=== PATIENT | female | born 1990 | race Caucasian/White ===

== ENCOUNTER 2016-08-15 16:20 | Emergency (ER) | payer OTHER ==
[~2016-08-15] VITALS: Ht 162.6 cm; Wt 51.6 kg
[~2016-08-15 16:20] MED LIST: BACIOIN2; CHOL1000 PO; PRED-301 PO; RBTDAC5; THIA50TA3 PO
[2016-08-15 16:23] VITALS: TEMP 36.5; Ht 162.6 cm; Wt 51.6 kg
[2016-08-15] MEDS ORDERED: DOXYCYCLINE HYCLATE 100 MG CAP PO ONE (17:00)
--- NOTE | 2016-08-15 17:09 | EMERGENCY ROOM VISIT NOTE ---
History Report prepared by Haley: Yifan Gaffney Under the Supervision of: Dr. Fredi Drew M.D. First contact with patient: 16:47 Chief Complaint: MENTAL HEALTH EVALUATION Stated Complaint: 302 History of Present Illness The patient is a 26 year old female who presents to the Emergency Room for a mental health evaluation starting prior to arrival. Per the nursing staff, the patient was found on a jungle gym rolling in the mud, and she was 302'ed. The patient states that she thinks that she was shocked by an ungrounded wire. The patient denies any drugs, and she states that she should be taking Zoloft for depression. The patient is additionally complaining of a tick in her arm, and cuts on her feet and hands. Source of History: patient, nursing staff Onset: prior to arrival Position: other (gloobal) Quality: other (mental health evaluation) Note: Associated symptoms: tick on her arm and cuts on her hands and feet. Review of Systems See HPI for pertinent positives & negatives. A total of 10 systems reviewed and were otherwise negative. Past Medical & Surgical Medical Problems: (1) Altered mental status (2) Anxiety (3) Drug overdose, multiple drugs (4) Drug withdrawal (5) Intentional overdose of drug in tablet form (6) Kidney stones (7) Opioid abuse (8) UTI (urinary tract infection) Family History Patient reports no known family medical history. Social History Smoking Status: Current Every Day Smoker Alcohol Use: occasionally Marital Status: single, in relationship Housing Status: lives with significant other Occupation Status: unemployed Current/Historical Medications No Active Prescriptions or Reported Meds Allergies Coded Allergies: No Known Allergies (Unverified , 08/15/16) Physical Exam Vital Signs Date Time Temp Pulse Resp B/P Pulse Ox O2 Delivery O2 Flow Rate FiO2 08/15/16 22:25 83 18 136/76 99 Room Air 08/15/16 18:27 86 16 114/75 100 Room Air 08/15/16 16:23 36.5 107 20 156/112 98 Room Air Physical Exam GENERAL: Patient is manic with rapid thought and speech. Disheveled and covered in dirt and grime. HEENT: No acute trauma, normocephalic atraumatic, mucous membranes moist, no nasal congestion, no scleral icterus. NECK: No stridor, no adenopathy, no meningismus, trachea is midline. LUNGS: No dyspnea. Clear to auscultation and equal bilaterally. No wheeze, no rhonchi. HEART: Regular rate and rhythm. No murmurs, rubs, gallops appreciated. ABDOMEN: Soft, nontender, bowel sounds positive, no masses appreciated, no peritonitis. BACK: No midline tenderness, no CVA tenderness EXTREMITIES: Multiple bruises of the lower extremities and cuts on hands and knees. Normal motion all extremities, no cyanosis, no edema. NEUROLOGIC: Alert and oriented, no acute motor or sensory deficits, no focal weakness, cranial nerves grossly intact. SKIN: Small tick with slight surrounding erythema of the right forearm. No rash , no jaundice, no diaphoresis. PSYCH: Manic. Denies suicidal of homicidal ideations. Denies depression. Deflects questions about drug use. Medical Decision & Procedures Laboratory Results 08/15/16 17:30 Red Blood Count 4.64, Mean Corpuscular Volume 87.1, Mean Corpuscular Hemoglobin 30.4, Mean Corpuscular Hemoglobin Concent 34.9, Mean Platelet Volume 9.0, Neutrophils (%) (Auto) 64.5, Lymphocytes (%) (Auto) 27.9, Monocytes (%) (Auto) 6.7, Eosinophils (%) (Auto) 0.3, Basophils (%) (Auto) 0.3, Neutrophils # (Auto) 7.69, Lymphocytes # (Auto) 3.33, Monocytes # (Auto) 0.80, Eosinophils # (Auto) 0.04, Basophils # (Auto) 0.04 08/15/16 17:30 Test 08/15/16 16:40 08/15/16 17:30 08/15/16 18:55 Urine RBC 0-4 /hpf (0-4) Urine WBC 5-10 /hpf (0-5) Urine Epithelial Cells >30 /lpf (0-5) Urine Renal Epithelial Cells /lpf (0-5) Urine Calcium Oxalate Crystals PRESENT (NONE PRSENT) Urine Bacteria 2+ (NEG) Urine Hyaline Casts 1-5 /lpf (0-5) Urine Pathogenic Casts /lpf (0) Urine Test NEG (NEG) Urine Opiates Screen NEG (NEG) Urine Methadone, Qualitative NEG (NEG) Urine Barbiturates NEG (NEG) Urine Phencyclidine (PCP) Level NEG (NEG) Ur Amphetamine/Methamphetamine POS (NEG) MDMA (Ecstasy) Screen POS (NEG) Urine Benzodiazepines Screen NEG (NEG) Urine Cocaine Metabolite NEG (NEG) Urine Marijuana (THC) POS (NEG) White Blood Count 11.93 K/uL (4.8-10.8) Red Blood Count 4.64 M/uL (4.2-5.4) Hemoglobin 14.1 g/dL (12.0-16.0) Hematocrit 40.4 % (37-47) Mean Corpuscular Volume 87.1 fL (80-100) Mean Corpuscular Hemoglobin 30.4 pg (25-34) Mean Corpuscular Hemoglobin Concent 34.9 g/dl (32-36) Platelet Count 566 K/uL (130-400) Mean Platelet Volume 9.0 fL (7.4-10.4) Neutrophils (%) (Auto) 64.5 % Lymphocytes (%) (Auto) 27.9 % Monocytes (%) (Auto) 6.7 % Eosinophils (%) (Auto) 0.3 % Basophils (%) (Auto) 0.3 % Neutrophils # (Auto) 7.69 K/uL (1.4-6.5) Lymphocytes # (Auto) 3.33 K/uL (1.2-3.4) Monocytes # (Auto) 0.80 K/uL (0.11-0.59) Eosinophils # (Auto) 0.04 K/uL (0-0.5) Basophils # (Auto) 0.04 K/uL (0-0.2) RDW Standard Deviation 40.4 fL (36.4-46.3) RDW Coefficient of Variation 12.6 % (11.5-14.5) Immature Granulocyte % (Auto) 0.3 % Immature Granulocyte # (Auto) 0.03 K/uL (0.00-0.02) Anion Gap 11.0 mmol/L (3-11) Est Creatinine Clear Calc Drug Dose 73.2 ml/min Estimated GFR () 96.4 Estimated GFR (Non- 83.1 BUN/Creatinine Ratio 13.5 (10-20) Calcium Level 9.7 mg/dl (8.5-10.1) Total Bilirubin 1.3 mg/dl (0.2-1) Aspartate Amino Transf (AST/SGOT) 18 U/L (15-37) Alanine Aminotransferase (ALT/SGPT) 40 U/L (12-78) Alkaline Phosphatase 78 U/L (45-117) Total Creatine Kinase 180 U/L (26-192) Total Protein 8.7 gm/dl (6.4-8.2) Albumin 4.8 gm/dl (3.4-5.0) Globulin 3.9 gm/dl (2.5-4.0) Albumin/Globulin Ratio 1.2 (0.9-2) Thyroid Stimulating Hormone (TSH) 1.350 uIu/ml (0.300-4.500) Salicylates Level 2.4 mg/dl (2.8-20) Acetaminophen Level < 2 ug/ml (10-30) Ethyl Alcohol mg/dL < 3.0 mg/dl (0-3) Urine Color DK YELLOW Urine Appearance CLOUDY (CLEAR) Urine pH 6.5 (4.5-7.5) Urine Specific [place] 1.026 (1.000-1.030) Urine Protein TRACE (NEG) Urine Glucose (UA) NEG (NEG) Urine Ketones TRACE (NEG) Urine Occult Blood NEG (NEG) Urine Nitrite NEG (NEG) Urine Bilirubin NEG (NEG) Urine Urobilinogen POS (NEG) Urine Leukocyte Esterase TRACE (NEG) Urine WBC (Auto) 1-5 /hpf (0-5) Urine RBC (Auto) 0-4 /hpf (0-4) Urine Hyaline Casts (Auto) 5-10 /lpf (0-5) Urine Epithelial Cells (Auto) >30 /lpf (0-5) Urine Bacteria (Auto) NEG (NEG) Urine Crystals CALCIUM OXALATE (NONE Laboratory results as reviewed by me. Medications Administered Medications (Trade) Dose Ordered Sig/Leelee Route Start Time Stop Time Status Last Admin Dose Admin Doxycycline Hyclate (Vibramycin Cap) 200 mg ONE ONCE PO 08/15/16 17:00 08/15/16 17:01 DC 08/15/16 17:24 200 MG Potassium Chloride (Ilda Ciel Elix) 40 meq NOW STAT PO 08/15/16 18:13 08/15/16 18:15 DC 08/15/16 18:24 40 MEQ Lorazepam (Ativan Inj) 2 mg NOW STAT IM 08/15/16 20:02 08/15/16 20:03 DC 08/15/16 20:26 2 MG Haloperidol Lactate (Haldol Inj) 2.5 mg NOW STAT IM 08/15/16 20:02 08/15/16 20:03 DC 08/15/16 20:26 2.5 MG Procedure Procedure: Tick removal Location: Right Forearm Mildly engorged tick with surrounding erythema of the right forearm. Removed in standard fashion with a tick twister. No foreign body remains. Patient tolerated well. Procedure: Tick removal Location: Right Lower abdomen Mildly engorged tick with surrounding erythema of the right lower abdomen. Removed in standard fashion with a tick twister. No foreign body remains. Patient tolerated well. ECG Indication: other (mental health evaluation) Rate (beats per minute): 65 Rhythm: other (sinus arrhythmia) Findings: no acute ischemic change, no ectopy ED Course 1649: The patient was evaluated in room A7. A complete history and physical exam was performed. 1699: Vibramycin Cap 200mg PO 1807: Klor-Con Tab 40 meq PO 1812: Ilda Ciel Elix 40meq PO 1813: I reassessed the patient, and she was similar to arrival, and her mother was at bedside. The mother notes that the patient has been doing drugs all week and has been out of touch. The patient took her doxycycline under close monitoring, but the decision was made to give her liquid potassium since she spits all all pills. 1929: I reevaluated the patient, and she is calm with periodic outbursts not requiring sedation. 1944: I reassessed the patient, and she states that she cannot get near electricity because it will make the electricity shut down in the room. I signed her 302 paperwork as she was incapable of making the decision herself. 2001: Haldol Ink 2.5mg IM, Ativan Inj 2mg IM 2002: Ativan and Haldol were given IM for treatment of her psych troubles. It was not done for chemical restraint. IM was used because unsure if the patient would take any oral medications. 2057: I reassessed the patient, and she was explaining to me and the staff that she was drawing the police to her with her radioactiveness that she received after drinking water. However, she is not combative and not trying to escape 2126: I reevaluated the patient, and she was stable 2229: The patient will be signed out to Dr. Ray at the change of shift. Medical Decision Differential: Mood Disorder, Overdose, Infectious, Electrolyte Abnormality, Cardiac, Hepatic, Endocrine, Toxicologic, Neurologic, amongst other pathologies entertained. 26 yr old female arrives covered in dirt/filth in acute manic episode. She is tangential and clearly psychotic with hallucinations. She is medically clear, though did have some mild hypokalemia consistent with not eating well. She will likely need her plts rechecked at some point though it is not cause of her psychosis. I suspect there is clearly element of drug abuse as the issue, though after discussion with her mother it is clear patient has had long untreated mental health disorder. I suspect the drugs have aggravated her psychiatric disorder. Was given ativan to help calm her down along with small dose haldol to start treating her psychosis. She did clearly calm though is still very much psychotic with hallucinations, flights of ideas/grandeur and in need of inpatient treatment. She is in no condition to sign voluntary mental health paperwork thus 302 Warrant signed. CAN help working on placement. Patient signed out to Dr Ray awaiting placement. She was given single dose doxy due to tick bites given two ticks and unknown how long they were on there. Impression Primary Impression: Manic episode, severe with psychotic symptoms Additional Impressions: Hypokalemia Dehydration Tick bite of abdomen Tick bite of forearm Scribe Attestation The scribe's documentation has been prepared under my direction and personally reviewed by me in its entirety. I confirm that the note above accurately reflects all work, treatment, procedures, and medical decision making performed by me. Departure Information Prescriptions No Active Prescriptions or Reported Meds Referrals Giovani Burnett PA-C (PCP) Patient Instructions My [facility] Problem Qualifiers Additional Impressions: Tick bite of abdomen Encounter type: initial encounter Qualified Codes: S30.861A - Insect bite ( nonvenomous) of abdominal wall, initial encounter; W57.XXXA - Bitten or stung by nonvenomous insect and other nonvenomous arthropods, initial encounter Tick bite of forearm Encounter type: initial encounter Laterality: right Qualified Codes: S50.861A - Insect bite (nonvenomous) of right forearm, initial encounter; W57.XXXA - Bitten or stung by nonvenomous insect and other nonvenomous arthropods, initial encounter
[2016-08-15 17:18] LABS: URINE APPEARANCE CLOUDY (CLEAR); URINE COLOR DK YELLOW; URINE NITRITE POS (NEG); URINE SPECIFIC GRAVITY 1.033 (1.000-1.030); UROBILINOGEN POS (NEG); ZZUR CULT IF INDIC CLEAN CATCH YES
[2016-08-15 17:32] LABS: MANUAL MICROSCOPIC REQUIRED? YES; REVIEW REQ? NO; URINE BILIRUBIN NEG (NEG)
[2016-08-15 17:35] LABS: URINE BACTERIA 2+ (NEG); URINE RBC 0-4 /hpf (0-4)
[2016-08-15 17:43] LABS: BENZODIAZEPINE, URINE NEG (NEG); COCAINE,URINE NEG (NEG); PHENCYCLIDINE, URINE NEG (NEG)
[2016-08-15 17:44] LABS: BASO % 0.3 %; BASO ABS # 0.04 K/uL (0-0.2); COMPLETE YES; EOS % 0.3 %; HEMATOCRIT 40.4 % (37-47); IG% 0.3 %; LYMPH % 27.9 %; LYMPH ABS # 3.33 K/uL (1.2-3.4); MEAN CELL VOLUME 87.1 fL (80-100); MEAN CORPUSCULAR HEMOGLOBIN 30.4 pg (25-34); MEAN CORPUSCULAR HGB CONC 34.9 g/dl (32-36); MONO % 6.7 %; NEUT % 64.5 %; PLATELET COUNT 566 K/uL (130-400); RED BLOOD COUNT 4.64 M/uL (4.2-5.4); WHITE BLOOD COUNT 11.93 K/uL (4.8-10.8)
[2016-08-15 18:04] LABS: BUN/CREATININE RATIO 13.5 (10-20); CALCIUM 9.7 mg/dl (8.5-10.1); CREATININE 0.94 mg/dl (0.60-1.20); POTASSIUM 2.7 mmol/L (3.5-5.1)
[2016-08-15] MEDS ORDERED: POTASSIUM CHLORIDE 20 MEQ TABCR PO STA (18:08)
[2016-08-15] MEDS ORDERED: POTASSIUM CHLORIDE 20 MEQ/15 ML UDC PO STA (18:13)
[2016-08-15 18:14] LABS: ACETAMINOPHEN < 2 ug/ml (10-30); ALB/GLOB RATIO 1.2 (0.9-2); THYROID STIMULATING HORMONE 1.35 uIu/ml (0.300-4.500)
[2016-08-15 19:21] LABS: URINE APPEARANCE CLOUDY (CLEAR); URINE COLOR DK YELLOW; URINE EPITHELIAL CELL AUTO >30 /lpf (0-5); URINE NITRITE NEG (NEG); URINE PH 6.5 (4.5-7.5); URINE SPECIFIC GRAVITY 1.026 (1.000-1.030); UROBILINOGEN POS (NEG); ZZUR CULT IF INDIC CLEAN CATCH NO
[2016-08-15 19:26] LABS: MANUAL MICROSCOPIC REQUIRED? NO; REVIEW REQ? YES
[2016-08-15 19:35] LABS: URINE BILIRUBIN NEG (NEG)
[2016-08-15] MEDS ORDERED: HALOPERIDOL LACTATE 5 MG/ML 1 ML VIAL IM STA (20:02)
[2016-08-15] MEDS ORDERED: LORAZEPAM 2 MG/ML 1 ML VIAL IM STA (20:02)
--- NOTE | 2016-08-16 00:49 | EMERGENCY ROOM VISIT NOTE ---
ED Visit Note Patient evaluated by crisis counselor currently under 302. I discussed evaluation with the crisis counselor at 12:47 AM. Patient is currently undergoing a bed search for placement under 302 Problem List Medical Problems: (1) Altered mental status Status: Resolved (2) Anxiety Status: Chronic (3) Drug overdose, multiple drugs Status: Resolved (4) Drug withdrawal Status: Resolved (5) Intentional overdose of drug in tablet form Status: Resolved (6) Kidney stones Status: Resolved (7) Opioid abuse Status: Chronic (8) UTI (urinary tract infection) Status: Resolved Current/Historical Medications No Active Prescriptions or Reported Meds Allergies Coded Allergies: No Known Allergies (Unverified , 08/15/16) Vital Signs Date Time Temp Pulse Resp B/P Pulse Ox O2 Delivery O2 Flow Rate FiO2 08/15/16 22:25 83 18 136/76 99 Room Air 08/15/16 18:27 86 16 114/75 100 Room Air 08/15/16 16:23 36.5 107 20 156/112 98 Room Air Laboratory Results 08/15/16 17:30 Red Blood Count 4.64, Mean Corpuscular Volume 87.1, Mean Corpuscular Hemoglobin 30.4, Mean Corpuscular Hemoglobin Concent 34.9, Mean Platelet Volume 9.0, Neutrophils (%) (Auto) 64.5, Lymphocytes (%) (Auto) 27.9, Monocytes (%) (Auto) 6.7, Eosinophils (%) (Auto) 0.3, Basophils (%) (Auto) 0.3, Neutrophils # (Auto) 7.69, Lymphocytes # (Auto) 3.33, Monocytes # (Auto) 0.80, Eosinophils # (Auto) 0.04, Basophils # (Auto) 0.04 08/15/16 17:30 Test 08/15/16 16:40 08/15/16 17:30 08/15/16 18:55 Urine RBC 0-4 /hpf (0-4) Urine WBC 5-10 /hpf (0-5) Urine Epithelial Cells >30 /lpf (0-5) Urine Renal Epithelial Cells /lpf (0-5) Urine Calcium Oxalate Crystals PRESENT (NONE PRSENT) Urine Bacteria 2+ (NEG) Urine Hyaline Casts 1-5 /lpf (0-5) Urine Pathogenic Casts /lpf (0) Urine Test NEG (NEG) Urine Opiates Screen NEG (NEG) Urine Methadone, Qualitative NEG (NEG) Urine Barbiturates NEG (NEG) Urine Phencyclidine (PCP) Level NEG (NEG) Ur Amphetamine/Methamphetamine POS (NEG) MDMA (Ecstasy) Screen POS (NEG) Urine Benzodiazepines Screen NEG (NEG) Urine Cocaine Metabolite NEG (NEG) Urine Marijuana (THC) POS (NEG) White Blood Count 11.93 K/uL (4.8-10.8) Red Blood Count 4.64 M/uL (4.2-5.4) Hemoglobin 14.1 g/dL (12.0-16.0) Hematocrit 40.4 % (37-47) Mean Corpuscular Volume 87.1 fL (80-100) Mean Corpuscular Hemoglobin 30.4 pg (25-34) Mean Corpuscular Hemoglobin Concent 34.9 g/dl (32-36) Platelet Count 566 K/uL (130-400) Mean Platelet Volume 9.0 fL (7.4-10.4) Neutrophils (%) (Auto) 64.5 % Lymphocytes (%) (Auto) 27.9 % Monocytes (%) (Auto) 6.7 % Eosinophils (%) (Auto) 0.3 % Basophils (%) (Auto) 0.3 % Neutrophils # (Auto) 7.69 K/uL (1.4-6.5) Lymphocytes # (Auto) 3.33 K/uL (1.2-3.4) Monocytes # (Auto) 0.80 K/uL (0.11-0.59) Eosinophils # (Auto) 0.04 K/uL (0-0.5) Basophils # (Auto) 0.04 K/uL (0-0.2) RDW Standard Deviation 40.4 fL (36.4-46.3) RDW Coefficient of Variation 12.6 % (11.5-14.5) Immature Granulocyte % (Auto) 0.3 % Immature Granulocyte # (Auto) 0.03 K/uL (0.00-0.02) Anion Gap 11.0 mmol/L (3-11) Est Creatinine Clear Calc Drug Dose 73.2 ml/min Estimated GFR () 96.4 Estimated GFR (Non- 83.1 BUN/Creatinine Ratio 13.5 (10-20) Calcium Level 9.7 mg/dl (8.5-10.1) Total Bilirubin 1.3 mg/dl (0.2-1) Aspartate Amino Transf (AST/SGOT) 18 U/L (15-37) Alanine Aminotransferase (ALT/SGPT) 40 U/L (12-78) Alkaline Phosphatase 78 U/L (45-117) Total Creatine Kinase 180 U/L (26-192) Total Protein 8.7 gm/dl (6.4-8.2) Albumin 4.8 gm/dl (3.4-5.0) Globulin 3.9 gm/dl (2.5-4.0) Albumin/Globulin Ratio 1.2 (0.9-2) Thyroid Stimulating Hormone (TSH) 1.350 uIu/ml (0.300-4.500) Salicylates Level 2.4 mg/dl (2.8-20) Acetaminophen Level < 2 ug/ml (10-30) Ethyl Alcohol mg/dL < 3.0 mg/dl (0-3) Urine Color DK YELLOW Urine Appearance CLOUDY (CLEAR) Urine pH 6.5 (4.5-7.5) Urine Specific [place] 1.026 (1.000-1.030) Urine Protein TRACE (NEG) Urine Glucose (UA) NEG (NEG) Urine Ketones TRACE (NEG) Urine Occult Blood NEG (NEG) Urine Nitrite NEG (NEG) Urine Bilirubin NEG (NEG) Urine Urobilinogen POS (NEG) Urine Leukocyte Esterase TRACE (NEG) Urine WBC (Auto) 1-5 /hpf (0-5) Urine RBC (Auto) 0-4 /hpf (0-4) Urine Hyaline Casts (Auto) 5-10 /lpf (0-5) Urine Epithelial Cells (Auto) >30 /lpf (0-5) Urine Bacteria (Auto) NEG (NEG) Urine Crystals CALCIUM OXALATE (NONE Medications Administered Medications (Trade) Dose Ordered Sig/Leelee Route Start Time Stop Time Status Last Admin Dose Admin Doxycycline Hyclate (Vibramycin Cap) 200 mg ONE ONCE PO 08/15/16 17:00 08/15/16 17:01 DC 08/15/16 17:24 200 MG Potassium Chloride (Ilda Ciel Elix) 40 meq NOW STAT PO 08/15/16 18:13 08/15/16 18:15 DC 08/15/16 18:24 40 MEQ Lorazepam (Ativan Inj) 2 mg NOW STAT IM 08/15/16 20:02 08/15/16 20:03 DC 08/15/16 20:26 2 MG Haloperidol Lactate (Haldol Inj) 2.5 mg NOW STAT IM 08/15/16 20:02 08/15/16 20:03 DC 08/15/16 20:26 2.5 MG Departure Information Impression Primary Impression: Manic episode, severe with psychotic symptoms Additional Impressions: Tick bite of abdomen Tick bite of forearm Dehydration Hypokalemia Prescriptions No Active Prescriptions or Reported Meds Referrals Giovani Burnett PA-C (PCP) Forms HOME CARE DOCUMENTATION FORM, IMPORTANT VISIT INFORMATION Patient Instructions My [facility] Problem Qualifiers
[2016-08-16 12:55] VITALS: BP 110/67; PULSE 78; O2SAT 96
--- NOTE | 2016-08-16 13:21 | EMERGENCY ROOM VISIT NOTE ---
ED Visit Note Patient accepted to the [facility].
--- NOTE | 2016-08-17 12:29 | Pharmacy Progress Note ---
ED Pharmacist Culture FollowUp Date of Service: August 17, 2016. Urine cx from 08/15 finalized today and is growing E coli. The corresponding UA may have been contaminated (> 30 epis, 5-10 WBC, trace LE, + nitrite, 3+ bacteria). A repeat UA on 08/16 was less impressive for infection: > 30 epis, only 1-5 WBC, - nitrite, trace LE and no bacteria. Patient presented w/ oumar, psychosis, hallucinations. No reports of urinary symptoms in provider's notes. Given the UA was not significantly positive for infection on 08/16 and the prior UA on 08/15 had many epis, it is likely the 08/15 cx is a contaminant and patient is not infected. No action required.
[2016-08-23 08:36] LABS: SYNTHETIC CANNABINOIDS QL URIN NEGATIVE (Negative)
== END 2016-08-16 13:19 ==
LOC: C.EDB 16:20 → C.EDA 08-16 13:19
DX: F30.2 Manic episode, severe with psychotic symptoms (principal); E86.0 Dehydration; E87.6 Hypokalemia; S30.861A Insect bite (nonvenomous) of abdominal wall, initial encounter; S50.861A Insect bite (nonvenomous) of right forearm, initial encounter; W57.XXXA Bitten or stung by nonvenomous insect and other nonvenomous arthropods, initial encounter; F41.9 Anxiety disorder, unspecified; Z87.440 Personal history of urinary (tract) infections; F11.10 Opioid abuse, uncomplicated; F17.210 Nicotine dependence, cigarettes, uncomplicated; Z87.442 Personal history of urinary calculi